=== PATIENT | female | born 1950 | race Hispanic/Latino ===

== ENCOUNTER 2016-05-07 14:03 | Outpatient (CLI) | payer MEDICARE, MEDICAID ==
--- NOTE | 2016-05-08 07:37 | RAD ---
TWO VIEWS OF THE RIGHT KNEE: Date: 05-07-16 History: Right knee strain after falling a few weeks ago. FINDINGS: There is tricompartment osteophytosis. There is mild narrowing of the medial joint compartment. Th ere is a moderate sized joint effusion. No obvious fracture is seen. There is no evidence of a dis location. There is a calcification seen anterior to the lateral aspect of the lateral joint compart ment which overlies the region of the patellar tendon. IMPRESSION: 1. No acute fracture visualized. 2. Moderate sized joint effusion. If there is concern for internal derangement, MRI right knee is suggested. 3. Osteoarthritis. POS: [facility]
== END 2016-05-07 14:04 | disposition home or self-care (01) ==
LOC: NAV RAD 14:03
PROVIDERS: ATTEND Specialist
DX: S86.911A Strain of unspecified muscle(s) and tendon(s) at lower leg level, right leg, initial encounter (principal); M17.9 Osteoarthritis of knee, unspecified

== ENCOUNTER 2018-06-25 16:28 | Emergency (ER) | payer MEDICARE, MEDICAID ==
[2018-06-25] MEDS ORDERED: Fluorescein Opthalmic Strip ONE (17:02)
== END 2018-06-25 17:30 | disposition home or self-care (01) ==
LOC: NAV ERS 16:28
DX: T26.11XA Burn of cornea and conjunctival sac, right eye, initial encounter (principal); T20.16XA Burn of first degree of forehead and cheek, initial encounter; E11.9 Type 2 diabetes mellitus without complications; I10 Essential (primary) hypertension; E78.00 Pure hypercholesterolemia, unspecified; Z79.84 Long term (current) use of oral hypoglycemic drugs; Z79.899 Other long term (current) drug therapy; X10.2XXA Contact with fats and cooking oils, initial encounter
CPT/HCPCS: 99283